=== PATIENT | male | born 1995 | race American Indian/Alaskan Native ===

== ENCOUNTER 2021-09-13 11:44 | Inpatient (IN) | payer SELFPAY ==
--- NOTE | 2021-09-13 12:09 | Emergency Department Report ---
HPI - General Chief Complaint: Overdose Time Seen by Provider: 09/13/21 11:52 - HPI HPI: Room 24 The patient is a 25-year-old male presenting with a chief complaint of overdose/altered mental status. Patient last known well time was last night when the patient spoke with his father. The sister states she came back from shopping this morning and found the patient in bed minimally responsive with pill bottles around him. The pill bottles include tamsulosin 0.4 mg and Tylenol 8-hour 650 mg each. In the ED the patient is sluggish but answers questions. The patient acknowledges he took both of the medications in both bottles in addition to an unknown amount of NyQuil. The patient states he did sometime earlier this morning but is not certain of the time. When asked why he took the medications the patient says he does not know. ED Past Medical Hx - Past Medical History Previous Medical History?: No - Surgical History Past Surgical History?: No - Family History Family history: no significant - Social History Smoking Status: Current Every Day Smoker Substance Use Type: None, Alcohol (Occasional) ED Review of Systems ROS: Stated complaint: POSSIBLE OD Other details as noted in HPI Constitutional: no symptoms reported Eyes: denies: eye pain ENT: denies: throat pain Respiratory: no symptoms reported Cardiovascular: denies: chest pain Endocrine: no symptoms reported Gastrointestinal: abdominal pain Genitourinary: denies: dysuria Musculoskeletal: denies: back pain Neurological: denies: headache Physical Exam - Physical Exam Vital Signs: Vital Signs 09/13/21 11:46 Pulse Rate 97 H O2 Sat by Pulse 100 Oximetry Physical Exam: GENERAL: The patient is well-developed well-nourished male lying on stretcher not appearing to be in acute distress. [] HEENT: Normocephalic. Atraumatic. Extraocular motions are intact. Patient has moist mucous membranes. NECK: Supple. Trachea midline CHEST/LUNGS: Clear to auscultation. There is no respiratory distress noted. HEART/CARDIOVASCULAR: Regular. There is no tachycardia. There is no gallop rub or murmur. ABDOMEN: Abdomen is soft, nontender. Patient has normal bowel sounds. There is no abdominal distention. SKIN: There is no rash. There is no edema. There is no diaphoresis. NEURO: The patient is awake, alert, and oriented. The patient is cooperative. The patient has no focal neurologic deficits. The patient has normal speech MUSCULOSKELETAL: There is no evidence of acute injury. ED Course Vital Signs 09/13/21 11:46 Pulse Rate 97 H O2 Sat by Pulse 100 Oximetry - Consultations Consultation #1: 09/13/21 15:09 Poison control called 09/13/21 15:31 Case discussed with poison control-given uncertain time of ingestion is recommended the patient received 21-hour Acetadote protocol. Approximately 2 hours before completion of the last bag I recommend repeating Tylenol level, comprehensive metabolic panel, PT/INR to assess for continued need for treatment ED Medical Decision Making - Lab Data Result diagrams: 09/13/21 13:23 09/13/21 13:23 Laboratory Tests 09/13/21 09/13/21 09/13/21 13:23 13:23 13:23 WBC 5.5 RBC 5.18 H Hgb 15.2 Hct 47.6 H MCV 92 MCH 29 MCHC 32 RDW 12.6 L Plt Count 207 Lymph % (Auto) 32.8 Dickinson % (Auto) 6.8 Eos % (Auto) 4.4 H Baso % (Auto) 0.9 Lymph # (Auto) 1.8 Dickinson # (Auto) 0.4 Eos # (Auto) 0.2 Baso # (Auto) 0.0 Seg Neutrophils % 55.1 Seg Neutrophils # 3.0 PT INR APTT Sodium Potassium Chloride Carbon Dioxide Anion Gap BUN Creatinine Estimated GFR BUN/Creatinine Ratio Glucose Calcium Total Bilirubin AST ALT Alkaline Phosphatase Total Protein Albumin Albumin/Globulin Ratio Salicylates < 0.3 L Acetaminophen 17.8 Plasma/Serum Alcohol 09/13/21 09/13/21 09/13/21 13:23 13:23 13:23 WBC RBC Hgb Hct MCV MCH MCHC RDW Plt Count Lymph % (Auto) [place] % (Auto) Eos % (Auto) Baso % (Auto) Lymph # (Auto) Dickinson # (Auto) Eos # (Auto) Baso # (Auto) Seg Neutrophils % Seg Neutrophils # PT 13.2 INR 0.90 APTT 26.0 Sodium 135 L Potassium 3.8 Chloride 99.0 Carbon Dioxide 23 Anion Gap 17 BUN 7 L Creatinine 1.0 Estimated GFR > 60 BUN/Creatinine Ratio 7 Glucose 102 H Calcium 9.7 Total Bilirubin 0.70 AST 31 ALT 41 Alkaline Phosphatase 61 Total Protein 7.2 Albumin 4.4 Albumin/Globulin Ratio 1.6 Salicylates Acetaminophen Plasma/Serum Alcohol < 0.01 - EKG Data -: EKG Interpreted by Me EKG shows normal: sinus rhythm Rate: normal - EKG Data When compared to previous EKG there are: previous EKG unavailable - Differential Diagnosis Medication overdose, suicidal ideation Critical care attestation.: If time is entered above; I have spent that time in minutes in the direct care of this critically ill patient, excluding procedure time. ED Disposition Clinical Impression: Intentional drug overdose Disposition: ADMITTED INPATIENT Is pt being admited?: Yes Does the pt Need Aspirin: No Condition: Fair Referrals: PRIMARY CARE, [Primary Care Provider] - 3-5 Days Time of Disposition: 15:33 (Hospitalist notified (Dr. Mi))
[2021-09-13 14:02] LABS: Basophils % (Auto) 0.9 % (0.0-1.8); Eosinophils # (Auto) 0.2 K/mm3 (0.0-0.4); Eosinophils % (Auto) 4.4 % (0.0-4.3); Hematocrit 47.6 % (35.5-45.6); Hemoglobin 15.2 gm/dl (11.8-15.2); Lymphocytes # (Auto) 1.8 K/mm3 (1.2-5.4); Lymphocytes % (Auto) 32.8 % (13.4-35.0); Mean Corpuscular HGB Conc 32 % (32-34); Mean Corpuscular Volume 92 fl (84-94); Monocytes # (Auto) 0.4 K/mm3 (0.0-0.8); Monocytes % (Auto) 6.8 % (0.0-7.3); Platelet Count 207 K/mm3 (140-440); Red Blood Count 5.18 M/mm3 (3.65-5.03); Red Cell Distribution Width 12.6 % (13.2-15.2)
[2021-09-13 14:03] LABS: Alanine Aminotransferase 41 units/L (7-56); Albumin 4.4 g/dL (3.9-5); BUN/Creatinine Ratio 7; Blood Urea Nitrogen 7 mg/dL (9-20); Calcium 9.7 mg/dL (8.4-10.2); Hemolysis Index 8
[2021-09-13 14:13] LABS: INR 0.9 (0.87-1.13)
--- NOTE | 2021-09-13 14:45 | Electrocardiograph Report ---
[facility] Test Date: 2021-09-13 Test Time: 13:14:44 Pat Name: LAURA JARAMILLO Department: Room: Gender: M [employer] Teacher: TALON : 1995 Requested By: RONNA FULLER Order Number: [id number] Reading MD: Missael Fu Measurements Intervals Benjamin Rate: 71 P: 73 GA: 158 QRS: 74 QRSD: 97 T: 67 QT: 362 QTc: 395 Interpretive Statements Sinus arrhythmia No previous ECG available for comparison Electronically Signed On 09-13-2021 14:45:07 EST by Missael Fu
[2021-09-13] MEDS ORDERED: DEXTROSE 5% IV ONE ×3 (16:00→22:00)
[2021-09-13] MEDS ORDERED: ACETADOTE IV ONE ×3 (16:00→22:00)
[2021-09-13] MEDS ORDERED: WATER IV ONE ×3 (16:00→22:00)
[2021-09-13] MEDS ORDERED: HYDROmorphone 1 MG/1 ML INJ IV PRN (17:52)
[2021-09-13] MEDS ORDERED: IBUPROFEN 600 MG TAB PO PRN (17:52)
[2021-09-13] MEDS ORDERED: MORPHINE 2 MG/1 ML INJ IV PRN (17:52)
[2021-09-13] MEDS ORDERED: ALBUTEROL 2.5 MG/3 ML NEBU IH PRN (17:52)
--- NOTE | 2021-09-13 17:52 | History and Physical Report ---
History of Present Illness Chief complaint: He took some pills History of present illness: 25 YO Male with Nicotine Dependence presents ED for evaluation. Patient is confused with diminished cognition at time of evaluation is unable to provide detailed history. Patient history taken from ED staff, as well as patient's sister. As per sister the patient was found to be sluggish upon her arrival to the home. The patient was found in bed with bottles of tamsulosin and Tylenol. Patient ingested an unknown quantity of the aforementioned pills in an attempt to take his own life. Patient transported to [facility] for further care and evaluation of the aforementioned symptoms. The patient was seen and evaluated in the emergency department. All lab and imaging studies reviewed. Patient found to have Tylenol toxicity, metabolic encephalopathy. Poison control notified. Patient initiated on Acetadote protocol and admitted to [facility] due to increased risk of worsening symptoms. No further history is obtainable. Sari molina has diminished cognition at time of evaluation but has a positive gag reflex and is able to protect his airway without difficulty. No prior mission for review. No medication listed at time of admission. Advanced care planning conducted in ED. Past History Past Medical History: other (See HPI) Past Surgical History: No surgical history, Other (Reviewed) Social history: single, smoking. denies: alcohol abuse, prescription drug abuse Family history: hypertension Medications and Allergies Allergies Allergy/AdvReac Type Severity Reaction Status Date / Time No Known Allergies Allergy Unverified 09/13/21 12:13 Active Meds: Active Medications Acetylcysteine 3,742 mg/ (Dextrose) 518.71 mls @ 125 mls/hr IV ONCE ONE Stop: 09/13/21 21:38 Last Admin: 09/13/21 17:51 Dose: 125 mls/hr Documented by: Acetylcysteine 7,483 mg/ (Dextrose) 1,037.415 mls @ 62.5 mls/hr IV ONCE ONE Stop: 09/14/21 14:35 Review of Systems ROS unobtainable: due to mental status Exam - Constitutional Vitals: Temp Pulse Resp BP Pulse Ox 98.7 F 85 14 135/88 100 09/13/21 12:07 09/13/21 13:30 09/13/21 13:30 09/13/21 13:30 09/13/21 13:30 General appearance: Present: mild distress - EENT Eyes: Present: PERRL ENT: hearing decreased - Neck Neck: Present: supple, normal ROM - Respiratory Respiratory effort: normal Respiratory: bilateral: CTA - Cardiovascular Heart Sounds: Present: S1 & S2. Absent: rub, click - Extremities Extremities: pulses symmetrical, No edema Peripheral Pulses: within normal limits - Abdominal General gastrointestinal: Present: soft, non-tender, non-distended, normal bowel sounds Male genitourinary: Present: normal - Integumentary Integumentary: Present: clear, warm, dry - Musculoskeletal Musculoskeletal: generalized weakness - Psychiatric Psychiatric: no appropriate mood/affect, no intact judgment & insight, no memory intact - Neurologic Neurologic: CNII-XII intact, no focal deficits, moves all extremities, no gait normal Results - Labs CBC & Chem 7: 09/13/21 13:23 09/13/21 13:23 Labs: Abnormal lab results 09/13/21 09/13/21 09/13/21 Range/Units 13:23 13:23 13:23 RBC 5.18 H (3.65-5.03) M/mm3 Hct 47.6 H (35.5-45.6) % RDW 12.6 L (13.2-15.2) % Eos % (Auto) 4.4 H (0.0-4.3) % Sodium 135 L (137-145) mmol/L BUN 7 L (9-20) mg/dL Glucose 102 H (75-100) mg/dL Salicylates < 0.3 L (2.8-20.0) mg/dL Assessment and Plan - Patient Problems (1) Acetaminophen toxicity Current Visit: Yes Status: Acute Qualifiers: Encounter type: initial encounter Plan to address problem: Admit to IMCU: Acetadote protocol: Repeat LFT as per Acetadote protocol, supportive care. Poison control consulted. 09/13/21 15:31 Case discussed with poison control-given uncertain time of ingestion is recommended the patient received 21-hour Acetadote protocol. Approximately 2 hours before completion of the last bag I recommend repeating Tylenol level, comprehensive metabolic panel, PT/INR to assess for continued need for treatment (2) Intentional drug overdose Current Visit: Yes Status: Acute Qualifiers: Encounter type: initial encounter Qualified Code(s): T50.902A - Poisoning by unspecified drugs, medicaments and biological substances, intentional self- harm, initial encounter Plan to address problem: Mental health team consulted, (3) Metabolic encephalopathy Current Visit: Yes Status: Acute Plan to address problem: Supportive care, neuro check, seizure precautions (4) DVT prophylaxis Current Visit: Yes Status: Acute Plan to address problem: SCD to bilateral lower extremities while in bed (5) Advance care planning Current Visit: Yes Status: Acute Plan to address problem: Disease education conducted, care plan discussed, diagnoses discussed, prognosis discussed, patient is full code. Patient family informed of patient care plan. Patient family acknowledge understanding and agreement with care plan, +30 minutes.
[2021-09-13 18:12] LABS: Bilirubin,Urine NEG (Negative); Blood,Urine NEG (Negative); Color,Urine Yellow (Yellow); Mucus,Urine 3+ /HPF; Protein,Urine <15 mg/dL mg/dL (Negative); Urobilinogen,Urine < 2.0 mg/dL (<2.0)
[2021-09-13 18:16] LABS: Amphetamine Screen,Urine Negative; Benzodiazepines Screen,Urine Negative; Cocaine Screen,Urine Negative; Methadone Screen,Urine Negative; Opiate Screen,Urine Negative
[2021-09-13 18:34] LABS: Cannabinoid Screen,Urine Positive
[2021-09-14 05:13] LABS: Basophils % (Auto) 0.6 % (0.0-1.8); Eosinophils # (Auto) 0.2 K/mm3 (0.0-0.4); Eosinophils % (Auto) 5.3 % (0.0-4.3); Hematocrit 44.6 % (35.5-45.6); Hemoglobin 14.4 gm/dl (11.8-15.2); Lymphocytes # (Auto) 1.5 K/mm3 (1.2-5.4); Lymphocytes % (Auto) 31.8 % (13.4-35.0); Mean Corpuscular HGB Conc 32 % (32-34); Mean Corpuscular Volume 92 fl (84-94); Monocytes # (Auto) 0.4 K/mm3 (0.0-0.8); Monocytes % (Auto) 8.5 % (0.0-7.3); Platelet Count 198 K/mm3 (140-440); Red Blood Count 4.87 M/mm3 (3.65-5.03); Red Cell Distribution Width 12.6 % (13.2-15.2)
[2021-09-14 05:30] LABS: Alanine Aminotransferase 32 units/L (7-56); BUN/Creatinine Ratio 4; Blood Urea Nitrogen 4 mg/dL (9-20); Calcium 9.5 mg/dL (8.4-10.2); Hemolysis Index 9
[2021-09-14] MEDS ORDERED: ZIPRASIDONE MESYLATE 20 MG VIAL IM ONE (06:11)
[2021-09-14 06:19] VITALS: BP 119/63
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
[2021-09-14] MEDS ORDERED: FLU VACC QUAD 2021-22(6MOS UP)/PF 60 MCG/0.5 ML SYRINGE IM ONE (12:00)
--- NOTE | 2021-09-14 13:15 | Event Note ---
Date: 09/14/21 Patient left against medical advice before I could see him.
--- NOTE | 2021-09-14 13:48 | Discharge Summary ---
Providers - Providers Date of Admission: 09/13/21 17:54 Attending physician: SANDY GIL Primary care physician: KRISTIE LESLIE MD Hospitalization Condition: Fair Exam - Constitutional Vitals: Temp Pulse Resp BP Pulse Ox 98.7 F 144 H 21 119/63 100 09/14/21 07:07 09/14/21 06:00 09/14/21 06:00 09/14/21 06:00 09/14/21 06:00 Plan Follow up with: PRIMARY CARE, [Primary Care Provider] - 3-5 Days Forms: AMA Form
== END 2021-09-14 08:30 | disposition left against medical advice (07) | DRG 917 ==
LOC: ED 11:44 → IMCU 17:54
PROVIDERS: ADMIT Internal Medicine; ATTEND Internal Medicine
DX: T39.1X2A Poisoning by 4-Aminophenol derivatives, intentional self-harm, initial encounter (principal); G93.41 Metabolic encephalopathy; F17.200 Nicotine dependence, unspecified, uncomplicated; Z82.49 Family history of ischemic heart disease and other diseases of the circulatory system; Y92.89 Other specified places as the place of occurrence of the external cause
CPT/HCPCS: 36415; 80053; 80307; 80320; 81001; 82962; 85025; 85610; 85730; 93005; G0378; J3490; J7060; G0480; J0132; J7070